=== PATIENT | male | born 1985 | race Caucasian/White ===

== ENCOUNTER 2017-09-28 13:54 | Emergency (ER) | payer OTHER ==
[~2017-09-28] VITALS: Ht 188 cm; Wt 79.5 kg
[~2017-09-28 13:54] MED LIST: HYDR-3533 PO; IBUP-238 PO; Z.0.NO CURRENT MEDS
[2017-09-28 13:56] VITALS: BP 124/56; PULSE 71; RESP 16; TEMP 98.3; O2SAT 98
[2017-09-28] MEDS ORDERED: CEPH-460 PO (14:12)
[2017-09-28] MEDS ORDERED: BACT800T5 PO (14:12)
--- NOTE | 2017-09-28 14:13 | PD ---
HPI Chief Complaint: Bite or Sting Time Seen by Provider: 14:10 Travel History International Travel<30 days: No Contact w/Intl Traveler<30days: No Traveled to known affect area: No History of Present Illness HPI 32-year-old male presents to the emergency Department with complaint of an insect bite to the inner aspect of his right ankle that he thinks occurred 2 or 3 nights ago. He noticed reddening to the area yesterday and with worsening today. The cervical the area approximately 1 hour ago and there is very minimal erythema outside the lines. Reports area is painful. Denies fever, vomiting. Denies paresthesias, loss of sensation, decreased range of motion, decreased strength to the affected extremity. Has not taken any medication or tried any treatments to alleviate his symptoms. Rates pain 6/10. Pain is worse with palpation. No known relieving factors. Has no other medical complaints. No known allergies. No other modifying factors or associated signs and symptoms. PFSH Past Medical History Diminished Hearing: No Social History Alcohol Use: Yes (socially) Tobacco Use: Yes (2 cigars daily) Substance Use: No Allergies-Medications (Allergen,Severity, Reaction): Coded Allergies: No Known Allergies (Verified , 07/01/11) Reported Meds & Prescriptions Reported Meds & Active Scripts Active Bactrim DS (Sulfamethoxazole-Trimethoprim) 800-160 Mg Tab 1 Tab PO BID 10 Days Keflex (Cephalexin) 500 Mg Cap 500 Mg PO Q6H 10 Days Lortab 5 mg/325 mg (Hydrocodone/Acetaminophen 5 mg/325 mg) 1 Tab 1-2 Tab PO Q6H PRN Motrin (Ibuprofen) 800 Mg Tab 800 Mg PO TID Reported No Current Meds (Miscellaneous Medication) [facility] [place] Review of Systems Except as stated in HPI: all other systems reviewed are Neg Physical Exam Narrative GENERAL: Well-nourished, well-developed male patient, in no acute distress SKIN: Warm and dry. Right medial ankle with area of erythema and warmth that measures approximately 3 cm in diameter; area is nonfluctuant without point or drainage. Consistent with cellulitis. HEAD: Atraumatic. Normocephalic. EYES: Pupils equal and round. No scleral icterus. No injection or drainage. ENT: Mucosa pink and moist. Airway patent. NECK: Trachea midline. CARDIOVASCULAR: Regular rate. RESPIRATORY: No accessory muscle use. GASTROINTESTINAL: Flat. MUSCULOSKELETAL: No obvious deformities. No clubbing. No cyanosis. No edema. NEUROLOGICAL: Awake and alert. Oriented 3. No obvious cranial nerve deficits. Motor grossly within normal limits. Normal speech. PSYCHIATRIC: Appropriate mood and affect; insight and judgment normal. Data Data Last Documented VS Vital Signs Date Time Temp Pulse Resp B/P (MAP) Pulse Ox O2 Delivery O2 Flow Rate FiO2 09/28/17 13:56 98.3 71 16 124/56 (78) 98 Orders Orders Ed Discharge Order (09/28/17 14:13) MDM Medical Decision Making Medical Screen Exam Complete: Yes Emergency Medical Condition: Yes Medical Record Reviewed: Yes Differential Diagnosis Cellulitis, insect bite, secondary infection Narrative Course 32-year-old male physical exam consistent with cellulitis of his medial right ankle. Patient is afebrile and nontoxic-appearing. Denies fever, vomiting. Keflex and Bactrim prescribed for home. Instructed patient to follow up with primary care provider. Patient verbalizes understanding and agreement with treatment plan. Patient is medically cleared and stable for discharge. Discussed reasons to return to the emergency department. Patient agrees with treatment plan. The patients vital signs are stable and the patient is stable for outpatient follow-up and treatment. Patient discharged home, stable and in no acute distress. Diagnosis Primary Impression: Cellulitis of right ankle Referrals: [facility] Primary Care Physician Patient Instructions: Cellulitis (ED), General Instructions, Insect Bite or Sting (ED) Additional Instructions: Complete full course of antibiotics Warm compresses to the affected area Keep area clean and dry Ibuprofen or Tylenol as directed and as needed for pain and inflammation Follow-up with primary care provider Return to emergency department immediately with worsening of symptoms Med/Other Pt SpecificInfo: Prescription(s) given Scripts Sulfamethoxazole-Trimethoprim (Bactrim DS) 800-160 Mg Tab 1 TAB PO BID for Infection for 10 Days, #20 TAB 0 Refills Prov: Rosario Tijerina 09/28/17 Cephalexin (Keflex) 500 Mg Cap 500 MG PO Q6H for Infection for 10 Days, #40 CAP 0 Refills Prov: Rosario Tijerina 09/28/17 Disposition: 01 DISCHARGE HOME Condition: Stable Rosario Tijerina Sep 28, 2017 14:13
== END 2017-09-28 14:37 | disposition home or self-care (01) ==
LOC: NEPK 13:54
DX: L03.115 Cellulitis of right lower limb (principal); Z72.0 Tobacco use
CPT/HCPCS: 99284